=== PATIENT | male | born 1945 | race African-American/Black ===

== ENCOUNTER 2023-02-08 07:18 | Emergency (ER) | payer OTHER ==
[2023-02-08] MEDS ORDERED: Vancomycin 1 GM VIAL ONE (07:54)
[2023-02-08] MEDS ORDERED: Cefepime 2 GM VIAL ONE (07:54)
[2023-02-08 08:08] LABS: Bilirubin Neg (Negative); Blood, Urine Negative (Negative); Glucose, Urine (Dipstick) Normal (Negative); Ketone, Urine Negative (Negative); Leukocyte Negative (Negative); Nitrite Negative (Negative); Protein, Urine (Dipstick) Negative (Neg-Trace); Specific Gravity, Urine 1.005 (1.005-1.030); Urobilinogen Normal mg/dL (Less than 2)
[2023-02-08 08:10] LABS: Clarity Clear (Clear)
[2023-02-08 08:16] LABS: Hematocrit 23.8 % (38.8-50.0); Hemoglobin 7.2 g/dL (13.5-17.5); MDiff Complete? YES; Mean Corpuscular HGB CONC 30.3 g/dL (32.0-36.0); Mean Corpuscular Hemoglobin 24.2 pg (27.0-33.0); Mean Corpuscular Volume 80.1 fl (81.2-95.1); Mean Platelet Volume 9.6 fl (7.4-10.4); Platelet Count 317 10x3/uL (150-450); RBC Distribution Width 18.6 % (11.5-14.5); Red Blood Cell (RBC) Count 2.97 10x6/uL (4.32-5.72)
[2023-02-08] MEDS ORDERED: Norepinephrine 4 MG/4 ML VIAL ONE (08:27)
[2023-02-08 08:29] LABS: ALT (SGPT) Less than 7 U/L (8-55); AST (SGOT) 10 U/L (5-34); Albumin 2.6 g/dL (3.4-4.8); Alkaline Phosphatase 90 U/L (40-110); Anion Gap 15 mmol/L (10-20); BUN (Urea Nitrogen) 12 mg/dL (8.4-25.7); Bilirubin, Total 1.2 mg/dL (0.2-1.2); Calc. Creatinine Clearance 0 mL/min (70-130); Calcium 7.1 mg/dL (7.8-10.44); Carbon Dioxide 18 mmol/L (23-31); Chloride 109 mmol/L (98-107); Estimated GFR 93; Globulin 2.6 g/dL (2.4-3.5); Glucose 75 mg/dL (83-110); Lipase 14 U/L (8-78); Potassium 3.5 mmol/L (3.5-5.1); Protein, Total 5.2 g/dL (5.8-8.1); Sodium 138 mmol/L (136-145)
[2023-02-08] MEDS ORDERED: NOREPINEPHRINE 8 MG/250 ML-D5W 250 ML ONE ×2 (08:30→13:30)
[2023-02-08 08:31] LABS: Troponin I Less than 0.010 ng/mL (< 0.028)
[2023-02-08 08:46] LABS: Bacteria/HPF Rare-Few HPF (None Seen); CAUTI Indications for Culture Alt mental st,lethar; RBC/HPF None Seen HPF (0-3); WBC/HPF 0-3 HPF (0-3)
[2023-02-08 08:47] LABS: Urine Culture Reflex No No
[2023-02-08 08:57] LABS: Band 2 % (5-11); Lymphocytes 17 % (21-51); Neutrophil 81 % (42-75)
[2023-02-08 09:01] LABS: Anisocytosis SLIGHT = 6-15 cells (100X) (0-5/hpf); Microcytosis SLIGHT = 6-15 cells (100X) (0-5/hpf)
[2023-02-08 09:02] LABS: Hypochromia SLIGHT = 6-15 cells (100X) (0-5/hpf); Platelet Adequacy Comment Appears Adequate; Platelet Clumps SLIGHT; Polychromasia SLIGHT = 2-3 cells (100X) (0-2/hpf)
[2023-02-08 09:18] LABS: SARS-CoV-2 NAA Rapid Test Not Detected (NotDetected)
[2023-02-08] MEDS ORDERED: Hydrocortisone Sod Succ/PF 100 mg/2 ml Vial ONE (10:03)
[2023-02-08 11:04] LABS: Lactic Acid 2.7 mmol/L (0.5-2.2)
== END 2023-02-08 13:43 | disposition short-term general hospital (02) ==
LOC: EEVIPCON 07:18 → CSHERS 07:18
DX: A41.9 Sepsis, unspecified organism (principal); R41.82 Altered mental status, unspecified; D64.9 Anemia, unspecified; I95.9 Hypotension, unspecified; E78.5 Hyperlipidemia, unspecified; I10 Essential (primary) hypertension; E66.9 Obesity, unspecified; Z79.82 Long term (current) use of aspirin
CPT/HCPCS: 36415; 36430; 36556; 70450; 71045; 72125; 80053; 81001; 83605; 83690; 83880; 84484; 85025; 86850; 86900; 86901; 87040; 87086; 87149; 93005; 93010; 96374; 96375; J0692; J1720; J3370; P9016; U0002